=== PATIENT | female | born 1950 | race Caucasian/White ===

== ENCOUNTER 2021-08-21 12:46 | Emergency (ER) | payer OTHER, SELFPAY ==
--- NOTE | ~2021-08-21 | XR_ITS ---
EXAMINATION: XR CHEST CLINICAL INFORMATION: Cough COMPARISON: None TECHNIQUE: 2 views of the chest were obtained. FINDINGS: No significant abnormality is noted involving the heart, lungs, mediastinum, bony thorax or soft tissues. Some left basilar scarring/atelectasis is seen along with a probable left lower lobe small calcified granuloma. XR/XR chest 2V IMPRESSION: No acute intrathoracic disease.
[2021-08-21 12:48] VITALS: BP 149/91; PULSE 73; RESP 18; TEMP 36.9; O2SAT 96; BMI 30.4
[2021-08-21 13:37] LABS: COVID-19 Test Negative (Negative); IDNOW Serial# 08D9AD1C
[2021-08-21 13:55] LABS: Influenza A Negative (Negative); Influenza B2 Negative (Negative)
--- NOTE | 2021-08-21 14:09 | ED.URI ---
HPI - URI/Sore Throat General Chief Complaint: Upper Respiratory Symptoms Stated Complaint: diff breathing Time Seen by Provider: 08/21/21 13:41 Source: patient Mode of arrival: ambulatory Limitations: no limitations History of Present Illness HPI Narrative: Patient presents to the emergency department for evaluation of cough, congestion, and runny nose x1 week. She was feeling better yesterday and then today when she went to do some errands she developed a sore throat, voice seemed course to her, and felt like she was having difficulty breathing. This improved with rest. She does report over the past few days burning wood from old house shingles and expresses concern that she may have inhaled chemicals from this. She does endorse chills. Denies fever, headache, neck pain, chest pain, nausea, vomiting, pedal edema, generalized weakness. Remote history of tobacco usage, cessation greater than 20 years ago. Was exposed to family members who were ill with similar symptoms. Related Data Allergies Allergy/AdvReac Type Severity Reaction Status Date / Time Penicillins [PENICILLINS] Allergy Unknown HIVES Verified 08/21/21 12:48 Review of Systems Review of Systems: Constitutional : No Fever, No Chills ENT/Mouth : Positive Hoarseness, positive sore throat, No Rhinorrhea Eyes: No Redness, No Discharge, No Vision Changes Cardiovascular : No Chest Pain, positive SOB, no Dyspnea on Exertion, No Edema Respiratory : positive Cough, No Sputum, no Wheezing, Gastrointestinal : No Nausea, No Vomiting, No Diarrhea, No abdominal Pain Genitourinary : No Dysuria, No Hematuria Musculoskeletal : No joint pain, No Myalgias Skin : No rash Neuro : No Weakness, No Numbness, No Headache Psych : No anxiety, depression Heme/Lymph: No Bruising, No Bleeding Endocrine : No Polyuria, No Polydipsia Yes all other systems are reviewed and are negative PMFSH Past Medical History Attestation statement: The following information was validated with the patient. Source: old records reviewed Social History Social History Advance Directives: No Advance Directives Information Provided: No Physical Exam Vital Signs: Vital Signs: Last Vital Signs Temp 98.4 F 08/21/21 12:48 Pulse 73 08/21/21 12:48 Resp 18 08/21/21 12:48 BP 149/91 H 08/21/21 12:48 Pulse Ox 96 08/21/21 12:48 BMI result Body Mass Index 30.4 Vital signs have been reviewed and appeared to be correct. Blood pressure elevated 149/91 Heart rate normal.? Respiration rate normal. Temperature normal.? Oxygen saturation normal. Appearance: Alert.?Oriented to person, place and time. No acute distress.?Normal affect. Eyes: Pupils equal, round and reactive to light.? Bilateral TM clear ENT: Pharynx with mild erythema, no exudate, no tonsillar hypertrophy. Voice is hoarse Neck: Normal inspection.? Neck supple.?? CVS: Heart sounds normal. Normal heart rate and rhythm.? Pulses normal.?? Respiratory: No respiratory distress.? Lung sounds clear to auscultation bilaterally. Audible upper chest congestion?? Abdomen: Soft and non-tender. Normoactive bowel sounds. No pulsatile mass.?? Skin: Skin warm and dry.? Normal skin color.? ? Extremities: No lower extremity edema.? No calf ttp? Neuro: Moves all extremities spontaneously. Sensation intact bilaterally. CN II-XII intact. No focal neuro deficits. Ambulates with normal steady gait. Course Course Course Narrative: Patient is a 62-year-old female with a past medical history of hyperlipidemia presenting to the emergency department for evaluation of upper respiratory symptoms and today with onset of sore throat, hoarseness, and an episode of difficulty taking a deep breath during exertion. She appears ill, but in no apparent distress, she is hemodynamically stable without fever, tachycardia, tachypnea, or hypoxia. COVID-19 and influenza testing obtained during triage were negative. At this time concerned for viral illness versus bronchitis verses pneumonia versus pharyngitis. Low suspicion for ACS/PE. Will obtain strep swab, and chest x-ray. Patient reporting that she needs to get home, requesting to be contacted with results of her x-ray and strep testing, at this time patient is stable for discharge, discussed symptomatic treatment for bronchitis with Flonase and Mucinex, staying well hydrated, resting. Advise reasons return back to the emergency department. Advised follow-up with primary care provider within 3 days. Reevaluation(s) Reevaluation #1: Chest x-ray reveals no acute pathology. Incidental finding of a left lower lobe small calcified granuloma, etiology unclear, but I do not suspect that this is the cause of her symptoms today. Contacted and advised Time: 16:33 MDM - URI/Sore Throat Medical Records Attestation: I reviewed the patient's medical records. Lab Data Attestation: I reviewed the patient's lab results. Labs: Lab Results 08/21/21 08/21/21 08/21/21 Range/Units 13:01 13:01 14:18 COVID-19 (JUAN) Negative (Negative) COVID-19 Clin Com See Note Influenza Type A (PATRICIA) Negative (Negative) Influenza Type B (PATRICIA) Negative (Negative) Influenza A & B Note See Note S. pyogenes GrpA PATRICIA Negative (Negative) Imaging Data Chest x-ray: Radiologist's impression: FINDINGS: No significant abnormality is noted involving the heart, lungs, mediastinum, bony thorax or soft tissues. Some left basilar scarring/atelectasis is seen along with a probable left lower lobe small calcified granuloma. XR/XR chest 2V IMPRESSION: No acute intrathoracic disease. Discharge Plan Discharge Clinical Impression: Upper respiratory infection Patient Disposition: Home, Self-Care Instructions: Upper Respiratory Infection (ED) Additional Instructions: COVID-19, influenza, strep throat testing are all negative. Your chest x-ray is pending at this time, you will be contacted if there are any concerning findings. Please be sure to rest, stay plan to hydrated, trial [id number] decongestant such as Mucinex. Return to the emergency department with any new or worsening symptoms or concerns. Follow-up with your primary care provider as needed. Interventions: ED Discharge Assessment Last Done: 08/21/21 14:51 Discharge Date/Time: 08/21/21 14:52
[2021-08-21 14:40] LABS: Strep A Nucleic Acid Negative (Negative)
== END 2021-08-21 14:52 | disposition home or self-care (01) ==
PROVIDERS: Nurse Practitioner Family; Emergency Provider Emergency Medicine; PCP Internal Medicine
DX: J06.9 Acute upper respiratory infection, unspecified (principal); R06.02 Shortness of breath; R05.9 Cough, unspecified; R09.89 Other specified symptoms and signs involving the circulatory and respiratory systems; E78.5 Hyperlipidemia, unspecified; Z20.822 Contact with and (suspected) exposure to COVID-19; Z79.899 Other long term (current) drug therapy
CPT/HCPCS: 36415; 71046; 87502; 87635; 87651; 99283